=== PATIENT | male | born 1950 | race Hispanic/Latino ===

== ENCOUNTER 2019-02-16 02:11 | Emergency (ER) | payer MEDICARE ==
[2019-02-16] MEDS ORDERED: Aspirin Chewable 81 MG TAB ONE (02:32)
[2019-02-16 02:33] LABS: #Basophils 0.1 thou/uL (0.0-0.2); #Eosinphils 0.1 thou/uL (0.0-0.7); #Lymphocytes 3.5 thou/uL (1.20-3.40); #Monocytes 0.6 thou/uL (0.11-0.59); #Neutrophils 4.6 thou/uL (1.40-6.50); %Basophils 0.9 % (0.0-1.0); %Eosinophils 1.2 % (0.0-10.0); %Lymphocytes 39.5 % (21.0-51.0); %Monocytes 6.4 % (0.0-10.0); %Neutrophils 52.1 % (42.0-75.0); Hemoglobin 15.1 g/dL (14.0-18.0); Mean Corpuscular HGB CONC 34.1 g/dL (32.0-36.0); Mean Corpuscular Hemoglobin 29.8 pg (27.0-31.0); Mean Corpuscular Volume 87.4 fL (78.0-98.0); Mean Platelet Volume 9.6 fL (7.4-10.4); Platelet Count 192 thou/uL (130-400); RBC Distribution Width 10.9 % (11.5-14.5); Red Blood Cell (RBC) Count 5.05 mill/uL (4.70-6.10); White Blood Cell (WBC) Count 8.9 thou/uL (4.8-10.8)
[2019-02-16 02:36] LABS: MDiff Complete? YES; Manual Diff?? NO
[2019-02-16] MEDS ORDERED: Mag-Al Plus 1200 MG/1200 MG/120 MG/30 ML UDCUP ONE (02:40)
[2019-02-16 02:52] LABS: ALT (SGPT) 34 U/L (8-55); AST (SGOT) 62 U/L (5-34); Albumin 3.8 g/dL (3.4-4.8); Alkaline Phosphatase 137 U/L (40-150); Anion Gap 16 mmol/L (10-20); BUN (Urea Nitrogen) 16 mg/dL (8.4-25.7); CK (CPK) 142 U/L (30-200); Calc. Creatinine Clearance 0 mL/min (70-130); Calcium 9.4 mg/dL (7.8-10.44); Carbon Dioxide 24 mmol/L (23-31); Chloride 99 mmol/L (98-107); Estimated GFR-MDRD 63; Globulin 3.1 g/dL (2.4-3.5); Glucose 417 mg/dL (80-115); Potassium 3.8 mmol/L (3.5-5.1); Protein, Total 6.9 g/dL (5.8-8.1); Sodium 135 mmol/L (136-145)
[2019-02-16] MEDS ORDERED: Insulin Regular 300 UNITS/3 ML VIAL ONE (03:08)
[2019-02-16 03:13] LABS: Lipase 3218 U/L (8-78)
--- NOTE | 2019-02-16 08:05 | RAD ---
PORTABLE CHEST: Date: 02/16/19 HISTORY: Chest pain. FINDINGS: Lung mckeon are clear of infiltrate. Heart size normal. No evidence of vascular congestion. IMPRESSION: No acute findings. POS: [facility]
== END 2019-02-16 03:46 | disposition short-term general hospital (02) ==
LOC: NAV ERS 02:11
DX: R07.9 Chest pain, unspecified (principal); K85.90 Acute pancreatitis without necrosis or infection, unspecified; E11.9 Type 2 diabetes mellitus without complications
CPT/HCPCS: 36415; 71045; 80053; 82550; 83690; 84484; 85025; 93005; 94760; 96360; J1815

== ENCOUNTER 2020-02-27 14:11 | Emergency (ER) | payer MEDICARE, MEDICAID ==
[2020-02-27 15:22] LABS: ALT (SGPT) 14 U/L (8-55); AST (SGOT) 12 U/L (5-34); Albumin 3.6 g/dL (3.4-4.8); Alkaline Phosphatase 169 U/L (40-110); Anion Gap 17 mmol/L (10-20); BUN (Urea Nitrogen) 14 mg/dL (8.4-25.7); Bilirubin, Total 0.4 mg/dL (0.2-1.2); CK (CPK) 107 U/L (30-200); Calc. Creatinine Clearance 0 mL/min (70-130); Calcium 8.6 mg/dL (7.8-10.44); Carbon Dioxide 21 mmol/L (23-31); Chloride 98 mmol/L (98-107); Estimated GFR-MDRD 56; Globulin 3.2 g/dL (2.4-3.5); Glucose 512 mg/dL (80-115); Protein, Total 6.8 g/dL (5.8-8.1); Sodium 132 mmol/L (136-145)
[2020-02-27] MEDS ORDERED: HumaLOG 300 UNITS/3 ML VIAL ONE (16:03)
== END 2020-02-27 16:15 | disposition home or self-care (01) ==
LOC: NAV ERS 14:11
DX: E11.65 Type 2 diabetes mellitus with hyperglycemia (principal); R25.2 Cramp and spasm; Z79.84 Long term (current) use of oral hypoglycemic drugs
CPT/HCPCS: 80053; 82550; 84484; 99284

== ENCOUNTER 2023-03-17 16:43 | Emergency (ER) | payer OTHER ==
[2023-03-17] MEDS ORDERED: Sodium Chloride 0.9% 2,000 ML ONE (17:11)
[2023-03-17] MEDS ORDERED: Acetaminophen 500 MG TAB ONE (17:11)
[2023-03-17 17:22] LABS: #Lymphocytes 0.9 thou/uL (1.20-3.40); #Monocytes 0.2 thou/uL (0.11-0.59); %Basophils 0.2 % (0.0-1.0); %Lymphocytes 6.3 % (21.0-51.0); %Monocytes 1.1 % (0.0-10.0); %Neutrophils 92.4 % (42.0-75.0); Hematocrit 43.8 % (42.0-52.0); Hemoglobin 14.5 g/dL (14.0-18.0); Mean Corpuscular HGB CONC 33.2 g/dL (32.0-36.0); Mean Corpuscular Hemoglobin 29.6 pg (27.0-31.0); Mean Corpuscular Volume 89.1 fl (78.0-98.0); Mean Platelet Volume 10.5 fL (7.4-10.4); Platelet Count 144 10x3/uL (130-400); RBC Distribution Width 11.3 % (11.5-14.5); Red Blood Cell (RBC) Count 4.91 mill/uL (4.70-6.10); White Blood Cell (WBC) Count 14.1 10x3/uL (4.8-10.8)
[2023-03-17 17:37] LABS: ALT (SGPT) 17 U/L (8-55); AST (SGOT) 14 U/L (5-34); Albumin 4.1 g/dL (3.4-4.8); Alkaline Phosphatase 86 U/L (40-110); Anion Gap 18 mmol/L (10-20); BUN (Urea Nitrogen) 19 mg/dL (8.4-25.7); Bilirubin, Total 2.1 mg/dL (0.2-1.2); Calc. Creatinine Clearance 0 mL/min (70-130); Calcium 9.2 mg/dL (7.8-10.44); Carbon Dioxide 19 mmol/L (23-31); Chloride 103 mmol/L (98-107); Estimated GFR 65; Globulin 2.9 g/dL (2.4-3.5); Glucose 192 mg/dL (83-110); Potassium 3.6 mmol/L (3.5-5.1); Sodium 136 mmol/L (136-145)
[2023-03-17] MEDS ORDERED: cefTRIAXone (ROCEPHIN) 2 GM VIAL ONE (17:45)
[2023-03-17] MEDS ORDERED: Sodium Chloride 0.9% 100 ML ONE (17:45)
[2023-03-17 17:57] LABS: SARS-CoV-2 NAA Rapid Test Not Detected (NotDetected)
[2023-03-17] MEDS ORDERED: Azithromycin 500 MG VIAL ONE (18:18)
[2023-03-17] MEDS ORDERED: Sodium Chloride 0.9% 500 ML ONE (18:20)
[2023-03-17] MEDS ORDERED: Sodium Chloride 0.9% 250 ML 250 ML ONE (18:25)
[2023-03-17 18:46] LABS: Bilirubin Negative (Negative); Blood, Urine Small (Negative); Clarity Clear (Clear); Glucose, Urine (Dipstick) Negative (Negative); Ketone, Urine 15 mg/dL (Negative); Leukocyte Small (Negative); Nitrite Negative (Negative); Protein, Urine (Dipstick) > or equal to 300 mg/dL (Neg-Trace); Specific Gravity, Urine 1.025 (1.005-1.030); Urobilinogen 0.2 mg/dL (Less than 2); pH, Urine 5.5 (5.0-9.0)
[2023-03-17 18:57] LABS: CAUTI Indications for Culture Fever or rigors
[2023-03-17 18:58] LABS: RBC/HPF 0-3 HPF (0-3); Squamous Epithelial 0-3 HPF (0-3)
[2023-03-17 18:59] LABS: Bacteria/HPF Rare-Few HPF (None Seen); Mucous/LPF 1+ LPF (<2+)
[2023-03-17 19:00] LABS: Urine Culture Reflex Yes Yes
[2023-03-17 20:01] LABS: Lactic Acid 1.1 mmol/L (0.5-2.2)
== END 2023-03-17 19:48 | disposition short-term general hospital (02) ==
LOC: NAV ERS 16:43
DX: A41.9 Sepsis, unspecified organism (principal); J18.9 Pneumonia, unspecified organism; N39.0 Urinary tract infection, site not specified; E11.9 Type 2 diabetes mellitus without complications; I10 Essential (primary) hypertension; Z79.4 Long term (current) use of insulin; Z79.84 Long term (current) use of oral hypoglycemic drugs
CPT/HCPCS: 71045; 80053; 81001; 83605; 84484; 85025; 87040; 87077; 87086; 87149 ×2; 87804 ×2; 96365; 96367; 99285; J0456; U0002; 36415; 87186; J0696; J3490; J7030; J7050

== ENCOUNTER 2023-10-05 11:02 | Outpatient (CLI) | payer OTHER ==
[2023-10-05 11:50] LABS: Anion Gap 15 mmol/L (10-20); BUN (Urea Nitrogen) 17 mg/dL (8.4-25.7); Calc. Creatinine Clearance 0 mL/min (70-130); Calcium 9.4 mg/dL (7.8-10.44); Carbon Dioxide 24 mmol/L (23-31); Chloride 105 mmol/L (98-107); Estimated GFR 68; Glucose 147 mg/dL (83-110); Sodium 140 mmol/L (136-145)
[2023-10-05 18:32] LABS: Creatinine, Urine 78.47 mg/dL (63-166)
== END 2023-10-05 11:03 | disposition home or self-care (01) ==
LOC: NAV LAB 11:02
PROVIDERS: ATTEND Internal Medicine Nephrology
DX: N18.2 Chronic kidney disease, stage 2 (mild) (principal)
CPT/HCPCS: 36415; 80048; 82570; 84156